=== PATIENT | female | born 1975 | race Caucasian/White ===

== ENCOUNTER 2016-08-20 14:19 | Emergency (ER) | payer SELFPAY ==
[2016-08-20 14:32] VITALS: BP 169/94; PULSE 96; RESP 20; TEMP 98.2
[2016-08-20] MEDS ORDERED: MORPHINE SULFATE 4 MG/ML SYRINGE IM STA (14:49)
[2016-08-20] MEDS ORDERED: DIAZEPAM 5 MG TAB PO STA (14:49)
[2016-08-20] MEDS ORDERED: KETOROLAC 60 MG/2 ML VIAL IM STA (14:49)
--- NOTE | 2016-08-20 14:51 | ED ---
General Adult HPI - General Chief complaint: Back Pain/Injury Stated complaint: back injury/pain Time Seen by Provider: 08/20/16 14:41 Source: patient, RN notes reviewed Mode of arrival: ambulatory Limitations: no limitations - History of Present Illness Initial comments: 40-year-old female presenting for right lower back pain. Patient states she was lifting her 60lb dog to take a bath and felt a sudden pop in her lower back followed by significant pain. She states since this time she feels like her right lower back is very tight and painful. States she has been able to ambulate without issue, however it is painful to move. Just try Motrin without relief of the pain. She denies any urinary complaints. She denies any fevers or chills. She denies any nausea or vomiting. She denies any other significant medical history. - Related Data Previous Rx's Medication Instructions Recorded Diazepam [Valium] 5 mg PO BID PRN #8 tab 08/20/16 HYDROcodone/APAP 5-325MG [[place] 1 tab PO Q6HR PRN #12 tab 08/20/16 5-325] Ibuprofen [Motrin] 800 mg PO Q8HR PRN #21 tab 08/20/16 Allergies Allergy/AdvReac Type Severity Reaction Status Date / Time No Known Allergies Allergy Verified 08/20/16 15:10 Review of Systems ROS Statement: Those systems with pertinent positive or pertinent negative responses have been documented in the HPI. ROS Other: All systems not noted in ROS Statement are negative. Past Medical History Past Medical History: No Reported History History of Any Multi-Drug Resistant Organisms: None Reported Past Surgical History: Tubal Ligation Past Psychological History: No Psychological Hx Reported Smoking Status: Never smoker Past Alcohol Use History: None Reported Past Drug Use History: None Reported General Exam - General Exam Comments Initial Comments: General: Awake and Alert. No acute distress. Does not appear acutely ill. Eyes: SHERON, EOM intact. No nystagmus. No scleral icterus. HENT: Atraumatic, normocephalic. Mucous membranes moist. Trachea midline. Neck: The neck is supple, there is no tenderness or JVD. Cardiovascular: Regular rate and rhythm. No murmur, rub, or gallop is appreciated. Distal pulses intact. Respiratory: Lungs are clear to auscultation bilaterally. No wheezes, rales, rhonchi. No respiratory distress. Gastrointestinal: Soft, Nontender. No rebound or guarding. Non-distended. No masses or organomegaly noted. No CVA tenderness. Musculoskeletal: Tenderness in the right lower lumbar musculature with associated spasm. No midline spinal tenderness. Normal ROM. No gross deformity. No strength deficits. Neurological: A&Ox3. CN II-XII grossly intact, There are no obvious motor or sensory deficits. Coordination appears grossly intact. Speech is normal. He is able to ambulate without issue. Skin: Skin is warm and dry and no rashes or lesions are noted. Psychiatric: Cooperative, appropriate mood & affect, normal judgment. Limitations: no limitations Course Vital Signs 08/20/16 14:30 Temperature 98.2 F Pulse Rate 96 Respiratory 20 Rate Blood Pressure 169/94 O2 Sat by Pulse 98 Oximetry Medical Decision Making - Medical Decision Making 40-year-old female presenting for lower back pain. Symptoms consistent with back strain and spasm today. No trauma or injury or indication for imaging at this time. No significant neurological findings on exam concerning for cauda equina or acute cord compression at this time. Patient is able to ambulate without issue. She was given pain and antispasmodic medications. Patient states she was feeling improved and is stable for discharge home. States she can arrange a ride home. Rx for management. Discussed concerning signs and symptoms for immediate return to the ED. Otherwise discussed NSAIDS, pain meds , stretching and ice/heat as needed. She is agreeable with plan and discharge home. Disposition Clinical Impression: Low back strain Disposition: HOME SELF-CARE Condition: Stable Instructions: Acute Low Back Pain (ED) Prescriptions: Diazepam [Valium] 5 mg PO BID PRN #8 tab PRN Reason: back spasm HYDROcodone/APAP 5-325MG [[place] 5-325] 1 tab PO Q6HR PRN #12 tab PRN Reason: Pain Ibuprofen [Motrin] 800 mg PO Q8HR PRN #21 tab PRN Reason: Pain Referrals: None,Stated [Primary Care Provider] - 1-2 days Time of Disposition: 15:23
== END 2016-08-20 15:30 | disposition home or self-care (01) ==
LOC: EC 14:19
DX: S39.012A Strain of muscle, fascia and tendon of lower back, initial encounter (principal); X50.0XXA Overexertion from strenuous movement or load, initial encounter; Y93.K9 Activity, other involving animal care
CPT/HCPCS: 96372 ×2; 99283; J2270; J1885